=== PATIENT | female | born 1990 | race Two or more races ===

== ENCOUNTER 2019-03-18 20:57 | Emergency (ER) | payer OTHER ==
[~2019-03-18] VITALS: Ht 167.6 cm; Wt 99.8 kg
[~2019-03-18 20:57] MED LIST: SPRINTEC1 TAB PO; SYNTHROID50 MCG PO
[2019-03-19] MEDS ORDERED: BUDESONIDE0.5 MG/2 M IH (01:59)
[2019-03-19] MEDS ORDERED: ALBUTEROL2.5 MG/3 M IH (01:59)
[2019-03-19] MEDS ORDERED: ZYNCOF 20-400120 ML PO (01:59)
[2019-03-19] MEDS ORDERED: PEPCID40 MG PO (01:59)
== END 2019-03-19 02:09 | disposition home or self-care (01) ==
LOC: ER 20:57
DX: B34.9 Viral infection, unspecified (principal)

== ENCOUNTER 2019-04-07 14:10 | Emergency (ER) | payer OTHER ==
[~2019-04-07] VITALS: Ht 167.6 cm; Wt 97.5 kg
[~2019-04-07 14:10] MED LIST changes: +ALBUTEROL2.5 MG/3 M IH; +BUDESONIDE0.5 MG/2 M IH; +PEPCID40 MG PO; +ZYNCOF 20-400120 ML PO
== END 2019-04-07 20:37 | disposition home or self-care (01) ==
LOC: ER 14:10
DX: S40.012A Contusion of left shoulder, initial encounter (principal); S30.0XXA Contusion of lower back and pelvis, initial encounter; S60.212A Contusion of left wrist, initial encounter; W10.8XXA Fall (on) (from) other stairs and steps, initial encounter; Y93.89 Activity, other specified; Y92.89 Other specified places as the place of occurrence of the external cause; Y99.8 Other external cause status

== ENCOUNTER 2019-07-09 18:24 | Emergency (ER) | payer OTHER ==
[~2019-07-09] VITALS: Ht 167.6 cm; Wt 102.1 kg
== END 2019-07-09 22:51 | disposition home or self-care (01) ==
LOC: ER 18:24
DX: R51 Headache (principal); H57.89 Other specified disorders of eye and adnexa

== ENCOUNTER → 2020-06-27 | Emergency (ER) | payer OTHER ==
[~2020-06-27] VITALS: Ht 170.2 cm; Wt 106.6 kg
[~2020-06-27] MED LIST changes: +AMOX-CLAV 875-1 EAC1 PO; +KETO10TA2 PO; +MUPIROCIN22 GM TOP
== END | disposition home or self-care (01) ==
LOC: ER 23:53
DX: S91.242A Puncture wound with foreign body of left great toe with damage to nail, initial encounter (principal); W22.8XXA Striking against or struck by other objects, initial encounter; Y93.89 Activity, other specified; Y92.89 Other specified places as the place of occurrence of the external cause; Y99.8 Other external cause status

== ENCOUNTER 2021-04-16 15:38 | Emergency (ER) | payer OTHER ==
[~2021-04-16] VITALS: Ht 167.6 cm; Wt 113.4 kg
== END 2021-04-16 21:14 | disposition home or self-care (01) ==
LOC: ER 15:38
DX: R10.2 Pelvic and perineal pain (principal); Z32.01 Encounter for pregnancy test, result positive

== ENCOUNTER 2021-04-28 20:58 | Emergency (ER) | payer OTHER ==
[~2021-04-28] VITALS: Ht 170.2 cm; Wt 113.4 kg
== END 2021-04-29 03:51 ==
LOC: ER 20:58
DX: N93.8 Other specified abnormal uterine and vaginal bleeding (principal)

== ENCOUNTER 2021-09-19 15:35 | Outpatient (CLI) | payer OTHER ==
[2021-09-19] MEDS ORDERED: PRENATALES (22:13)
[2021-09-19] MEDS ORDERED: VAZALORE81 MG (22:13)
[2021-09-20] MEDS ORDERED: CEPHALEXIN500 M1 PO (07:03)
[2021-09-20] MEDS ORDERED: ACETAMINOPHEN650 M2 PO (07:03)
== END 2021-09-19 16:35 | disposition home or self-care (01) ==
LOC: PRENATAL 15:35
PROVIDERS: ATTEND Obstetrics & Gynecology Maternal & Fetal Medicine
DX: O36.80X0 Pregnancy with inconclusive fetal viability, not applicable or unspecified (principal); Z36.0 Encounter for antenatal screening for chromosomal anomalies; Z3A.23 23 weeks gestation of pregnancy

== ENCOUNTER 2021-09-19 21:04 | Emergency (ER) | payer OTHER ==
[~2021-09-19] VITALS: Ht 170.2 cm; Wt 117.5 kg
[2021-09-19] MEDS ORDERED: PRENATALES (22:13)
[2021-09-19] MEDS ORDERED: VAZALORE81 MG (22:13)
[2021-09-20] MEDS ORDERED: ACETAMINOPHEN650 M2 PO (07:03)
[2021-09-20] MEDS ORDERED: CEPHALEXIN500 M1 PO (07:03)
== END 2021-09-20 08:17 | disposition home or self-care (01) ==
LOC: ER 21:04
DX: O23.12 Infections of bladder in pregnancy, second trimester (principal); N30.91 Cystitis, unspecified with hematuria; Z3A.14 14 weeks gestation of pregnancy

== ENCOUNTER 2021-09-23 17:47 | Emergency (ER) | payer OTHER ==
[~2021-09-23] VITALS: Ht 170.2 cm; Wt 117.5 kg
[~2021-09-23 17:47] MED LIST changes: +ACETAMINOPHEN650 M2 PO; +CEPHALEXIN500 M1 PO; +PRENATALES; +VAZALORE81 MG
== END 2021-09-23 21:38 | disposition home or self-care (01) ==
LOC: ER 17:47
DX: O26.891 Other specified pregnancy related conditions, first trimester (principal); Z3A.13 13 weeks gestation of pregnancy; R31.9 Hematuria, unspecified; R10.32 Left lower quadrant pain

== ENCOUNTER 2021-10-31 07:12 | Emergency (ER) | payer OTHER ==
[~2021-10-31] VITALS: Ht 170.2 cm; Wt 120.2 kg
[2021-11-01] MEDS ORDERED: MAXIMUM D3325 MCG (10:16)
[2021-11-01] MEDS ORDERED: PRENATAL + DHA1 EAC1 (10:17)
== END 2021-10-31 12:49 | disposition home or self-care (01) ==
LOC: ER 07:12
DX: O26.892 Other specified pregnancy related conditions, second trimester (principal); Z3A.20 20 weeks gestation of pregnancy; R10.2 Pelvic and perineal pain; R11.10 Vomiting, unspecified; O34.12 Maternal care for benign tumor of corpus uteri, second trimester; N13.30 Unspecified hydronephrosis

== ENCOUNTER 2021-10-31 17:39 | Inpatient (IN) | payer OTHER ==
[~2021-10-31] VITALS: Ht 170.2 cm; Wt 119.3 kg
[2021-11-01] MEDS ORDERED: MAXIMUM D3325 MCG (10:16)
[2021-11-01] MEDS ORDERED: PRENATAL + DHA1 EAC1 (10:17)
== END 2021-11-05 13:32 | disposition home or self-care (01) | DRG 819 ==
LOC: OB/GYN 17:39 → LDR 17:39 → OB/GYN 11-01 21:02
PROVIDERS: Urology; ADMIT Obstetrics & Gynecology; ATTEND Obstetrics & Gynecology
PROC: 4A1HXCZ Monitoring of Products of Conception, Cardiac Rate, External Approach (ICD-10-PCS; 2021-10-31)
PROC: BT43ZZZ Ultrasonography of Bilateral Kidneys (ICD-10-PCS; 2021-11-02)
PROC: 0TC78ZZ Extirpation of Matter from Left Ureter, Via Natural or Artificial Opening Endoscopic (ICD-10-PCS; 2021-11-04)
PROC: 0T778DZ Dilation of Left Ureter with Intraluminal Device, Via Natural or Artificial Opening Endoscopic (ICD-10-PCS; principal; 2021-11-04 21:30)
DX: O26.832 Pregnancy related renal disease, second trimester (principal); N23 Unspecified renal colic; N20.0 Calculus of kidney; Z3A.19 19 weeks gestation of pregnancy; Z20.822 Contact with and (suspected) exposure to COVID-19

== ENCOUNTER 2021-11-16 10:12 | Day surgery (SDC) | payer OTHER ==
[~2021-11-16] VITALS: Ht 228.6 cm; Wt 118.4 kg
[~2021-11-16 10:12] MED LIST changes: +MAXIMUM D3325 MCG; +PRENATAL + DHA1 EAC1
== END 2021-11-16 16:30 | disposition home or self-care (01) ==
LOC: CIR.AMB 10:12
PROVIDERS: ATTEND Urology
DX: N20.1 Calculus of ureter (principal); Z20.822 Contact with and (suspected) exposure to COVID-19; Z86.16 Personal history of COVID-19; J45.909 Unspecified asthma, uncomplicated; Z79.82 Long term (current) use of aspirin
CPT/HCPCS: 52356; C1758

== ENCOUNTER 2021-11-24 13:06 | Outpatient (CLI) | payer OTHER ==
[2021-11-29] MEDS ORDERED: ECOTRIN81 MG PO (08:48)
== END 2021-11-24 15:13 | disposition home or self-care (01) ==
LOC: PRENATAL 13:06
PROVIDERS: ATTEND Obstetrics & Gynecology Maternal & Fetal Medicine
DX: O35.9XX0 Maternal care for (suspected) fetal abnormality and damage, unspecified, not applicable or unspecified (principal); O35.3XX0 Maternal care for (suspected) damage to fetus from viral disease in mother, not applicable or unspecified; O99.210 Obesity complicating pregnancy, unspecified trimester; Z3A.22 22 weeks gestation of pregnancy

== ENCOUNTER → 2021-11-30 | Day surgery (SDC) | payer OTHER ==
[~2021-11-30] MED LIST changes: +ECOTRIN81 MG PO
== END | disposition home or self-care (01) ==
LOC: ADM 11-29 07:15 → CIR.AMB 07:15
PROVIDERS: ATTEND Urology
DX: N20.1 Calculus of ureter (principal); Z20.822 Contact with and (suspected) exposure to COVID-19; J45.909 Unspecified asthma, uncomplicated; Z86.16 Personal history of COVID-19; E03.9 Hypothyroidism, unspecified

== ENCOUNTER 2022-02-15 10:19 | Outpatient (CLI) | payer OTHER | END 2022-02-15 11:55 | disposition home or self-care (01) | LOC: PRENATAL 10:19 | PROVIDERS: ATTEND Obstetrics & Gynecology Maternal & Fetal Medicine | DX: O36.8199 Decreased fetal movements, unspecified trimester, other fetus (principal); O99.210 Obesity complicating pregnancy, unspecified trimester; O41.00X0 Oligohydramnios, unspecified trimester, not applicable or unspecified; Z3A.34 34 weeks gestation of pregnancy ==

== ENCOUNTER 2022-02-22 11:52 | Outpatient (CLI) | payer OTHER | END 2022-02-22 14:20 | disposition home or self-care (01) | LOC: PRENATAL 11:52 | PROVIDERS: ATTEND Obstetrics & Gynecology Maternal & Fetal Medicine | DX: O36.8199 Decreased fetal movements, unspecified trimester, other fetus (principal); O99.210 Obesity complicating pregnancy, unspecified trimester; O41.00X0 Oligohydramnios, unspecified trimester, not applicable or unspecified ==

== ENCOUNTER 2022-03-10 14:11 | Inpatient (IN) | payer OTHER ==
[~2022-03-10] VITALS: Ht 170.2 cm; Wt 2.3 kg
[2022-03-13] MEDS ORDERED: SURFAK240 M1 PO (13:20)
[2022-03-13] MEDS ORDERED: IBU800 MG PO (13:20)
== END 2022-03-13 14:11 | disposition home or self-care (01) | DRG 788 ==
LOC: OBS/DEL 14:11 → LDR 17:28 → OBS/DEL 17:28 → OB/GYN 20:42
PROVIDERS: ADMIT Obstetrics & Gynecology; ATTEND Obstetrics & Gynecology
PROC: 0UB90ZZ Excision of Uterus, Open Approach (ICD-10-PCS; 2022-03-10)
PROC: 4A1HXCZ Monitoring of Products of Conception, Cardiac Rate, External Approach (ICD-10-PCS; 2022-03-10)
PROC: BY4FZZZ Ultrasonography of Third Trimester, Single Fetus (ICD-10-PCS; 2022-03-10)
PROC: 10D00Z1 Extraction of Products of Conception, Low, Open Approach (ICD-10-PCS; principal; 2022-03-10 18:00)
DX: O36.8330 Maternal care for abnormalities of the fetal heart rate or rhythm, third trimester, not applicable or unspecified (principal); O36.8130 Decreased fetal movements, third trimester, not applicable or unspecified; O34.13 Maternal care for benign tumor of corpus uteri, third trimester; D25.2 Subserosal leiomyoma of uterus; O99.824 Streptococcus B carrier state complicating childbirth; O26.843 Uterine size-date discrepancy, third trimester; Z3A.37 37 weeks gestation of pregnancy; Z37.0 Single live birth; Z20.822 Contact with and (suspected) exposure to COVID-19

== ENCOUNTER 2022-06-07 19:52 | Emergency (ER) | payer OTHER ==
[~2022-06-07] VITALS: Ht 165.1 cm; Wt 90.7 kg
[~2022-06-07 19:52] MED LIST changes: +IBU800 MG PO; +SURFAK240 M1 PO
== END 2022-06-07 21:04 | disposition home or self-care (01) ==
LOC: ER 19:52
DX: J06.9 Acute upper respiratory infection, unspecified (principal)

== ENCOUNTER 2022-06-08 20:33 | Emergency (ER) | payer OTHER ==
[~2022-06-08] VITALS: Ht 165.1 cm; Wt 81.6 kg
== END 2022-06-08 22:57 | disposition home or self-care (01) ==
LOC: ER 20:33
DX: J06.9 Acute upper respiratory infection, unspecified (principal)

== ENCOUNTER 2022-06-28 14:45 | Outpatient (CLI) | payer OTHER | END 2022-06-28 15:05 | disposition home or self-care (01) | LOC: SONOGRAMA 14:45 | DX: N20.1 Calculus of ureter (principal); R31.1 Benign essential microscopic hematuria ==

== ENCOUNTER 2023-11-03 13:43 | Emergency (ER) | payer OTHER ==
[~2023-11-03] VITALS: Ht 170.2 cm; Wt 123.4 kg
[2023-11-03] MEDS ORDERED: DEXAMETHASONE SODIUM PHOSPHATE 4 MG/ML VIAL IM STA (14:29)
[2023-11-03] MEDS ORDERED: ORPHENADRINE CITRATE 30 MG/ML AMPUL IM STA (14:30)
[2023-11-03] MEDS ORDERED: ORPHENADRINE CITRATE 30 MG/ML AMPUL ONE (14:50)
[2023-11-03] MEDS ORDERED: DEXAMETHASONE SODIUM PHOSPHATE 4 MG/ML VIAL ONE (14:51)
[2023-11-03] MEDS ORDERED: ORPHENADRI30 MG/1 M1 IJ (15:43)
== END 2023-11-03 15:49 | disposition home or self-care (01) ==
LOC: ER 13:44
DX: M62.838 Other muscle spasm (principal)

== ENCOUNTER 2024-06-04 15:40 | Outpatient (CLI) | payer OTHER ==
[~2024-06-04 15:40] MED LIST changes: +ORPHENADRI30 MG/1 M1 IJ
== END 2024-06-04 15:48 | disposition home or self-care (01) ==
LOC: RAD 15:40
PROVIDERS: ATTEND Internal Medicine Pulmonary Disease
DX: J45.30 Mild persistent asthma, uncomplicated (principal)

== ENCOUNTER 2024-10-23 11:09 | Outpatient (CLI) | payer OTHER | END 2024-10-23 11:12 | disposition home or self-care (01) | LOC: SONOGRAMA 11:09 | DX: K76.0 Fatty (change of) liver, not elsewhere classified (principal) ==

== ENCOUNTER 2024-11-24 13:17 | Emergency (ER) | payer OTHER ==
[~2024-11-24] VITALS: Ht 170.2 cm; Wt 130.2 kg
[2024-11-24] MEDS ORDERED: ZOLOFT100 MG PO (13:42)
[2024-11-24] MEDS ORDERED: HYDROCHLOROTH12.5 M2 PO (13:42)
[2024-11-24] MEDS ORDERED: AMICAR500 MG PO (13:42)
[2024-11-24] MEDS ORDERED: LEVALBUTEROL HCL 1.25 MG/3 ML SOLUTION IH ONE ×3 (15:15→16:27)
[2024-11-24] MEDS ORDERED: GUAIFENESIN/DEXTROMETHORPHAN 100MG/10ML BLIST.PACK PO ONE (15:15)
[2024-11-24] MEDS ORDERED: CETIRIZINE HCL 5 MG/5 ML ML PO ONE (15:15)
[2024-11-24] MEDS ORDERED: METHYLPREDNISOLONE SOD SUCC 125 MG VIAL IV ONE (15:15)
[2024-11-24] MEDS ORDERED: IPRATROPIUM BROMIDE 0.5 MG/2.5 ML AMPUL.NEB IH ONE ×3 (15:15→16:27)
[2024-11-24] MEDS ORDERED: LEVALBUTEROL HCL 1.25 MG/3 ML SOLUTION IH SCH (16:30)
[2024-11-24] MEDS ORDERED: IPRATROPIUM BROMIDE 0.5 MG/2.5 ML AMPUL.NEB IH SCH (16:30)
[2024-11-24] MEDS ORDERED: METHYLPREDNISOLONE SOD SUCC 125 MG VIAL ONE (16:59)
[2024-11-24] MEDS ORDERED: GUAIFENESIN 200 MG/10 ML BLIST.PACK PO ONE (17:00)
[2024-11-24] MEDS ORDERED: CETIRIZINE HCL 5MG/5ML BLIST.PACK PO ONE (17:00)
[2024-11-24 17:42] LABS: BASO % 0.7 % (0.1-1.2); EOS # 0.19 (0.04-0.54); EOS % 2.5 % (0.7-7.0); LYMPH # 2.47 (1.18-3.74); LYMPH % 32.2 % (19.3-53.1); MEAN PLATELET VOLUME 9.70 fl (9.4-12.4); MONO # 0.73 (0.24-0.82); MONO % 9.5 % (4.7-12.5); NEUT # 4.21 (1.56-6.13); NEUT % 54.8 % (34.0-71.1); RED CELL DISTRIBUTION WIDTH 13.9 % (11.6-14.4)
[2024-11-24 18:10] LABS: COVID-19 AG NEGATIVE (NEGATIVE)
[2024-11-24] MEDS ORDERED: ZYRTEC10 MG PO (19:48)
[2024-11-24] MEDS ORDERED: IPRATROPIU0.2 MG/1 M IH (19:48)
[2024-11-24] MEDS ORDERED: XOPENEX CO1.25 MG/0. IH (19:48)
[2024-11-24] MEDS ORDERED: BENZONATATE200 M1 PO (19:48)
== END 2024-11-24 20:51 | disposition home or self-care (01) ==
LOC: ER 13:17
PROVIDERS: General Practice
DX: J45.909 Unspecified asthma, uncomplicated (principal); J00 Acute nasopharyngitis [common cold]; Z20.822 Contact with and (suspected) exposure to COVID-19; I10 Essential (primary) hypertension; I49.9 Cardiac arrhythmia, unspecified; G47.30 Sleep apnea, unspecified